=== PATIENT | male | born 1995 | race Caucasian/White ===

== ENCOUNTER 2021-08-16 15:52 | Emergency (ER) | payer BC ==
[2021-08-16 16:26] VITALS: BP 143/78; PULSE 103; TEMP 97.7; BMI 33.0
== END 2021-08-16 16:20 | disposition home or self-care (01) ==
LOC: FER 15:52
DX: S61.213A Laceration without foreign body of left middle finger without damage to nail, initial encounter (principal); W26.0XXA Contact with knife, initial encounter
CPT/HCPCS: 99281-25

== ENCOUNTER 2024-06-20 20:20 | Emergency (ER) | payer BC ==
[2024-06-20 20:34] VITALS: BP 137/97; PULSE 114; RESP 18; TEMP 98.2; BMI 33.1
[2024-06-20] MEDS ORDERED: SULFAMETHOXAZOLE/TRIMETHOPRIM 800MG/160MG D.S. TABLET ONE (20:39)
[2024-06-20] MEDS: SULFAMETHOXAZOLE/TRIMETHOPRIM 800MG/160MG D.S. TABLET PO ONE (20:41)
== END 2024-06-20 20:46 | disposition home or self-care (01) ==
LOC: FER 20:20
DX: L03.116 Cellulitis of left lower limb (principal)
CPT/HCPCS: 99283-25